=== PATIENT | female | born 1990 | race Caucasian/White ===

== ENCOUNTER 2021-11-23 14:36 | Outpatient (CLI) | payer BC ==
--- NOTE | 2021-11-23 15:20 | XRay Report ---
RIGHT KNEE 3 VIEWS INDICATION: RIGHT KNEE PAIN [id number]. COMPARISON: None. IMPRESSION: No acute osseous or soft tissue abnormality. No significant DJD. Signer Name: Catrachito Duncan Jr, MD Signed: 11/23/2021 3:15 PM Workstation Name: [id number]
== END 2021-11-23 14:37 | disposition home or self-care (01) ==
LOC: XRAY 14:36
PROVIDERS: ATTEND Internal Medicine
DX: M25.561 Pain in right knee (principal)